=== PATIENT | female | born 1990 | race Caucasian/White ===

== ENCOUNTER 2022-07-01 14:59 | Emergency (ER) | payer OTHER ==
[2022-07-01 15:34] LABS: BASOPHILS # (AUTO) 0.1 10^3/uL (0.0-0.1); BASOPHILS % (AUTO) 1.1 %; EOSINOPHILS # (AUTO) 0.5 10^3/uL (0.0-0.7); EOSINOPHILS % (AUTO) 4.6 %; HCT - HEMATOCRIT 39.3 % (37.0-47.0); HGB - HEMOGLOBIN 12.5 g/dL (12.0-16.0); LYMPHOCYTES # (AUTO) 2.9 10^3/uL (1.5-3.5); LYMPHOCYTES % (AUTO) 29.7 %; MEAN CORPUSCULAR HEMOGLOBIN 29.6 pg (27.0-31.0); MEAN CORPUSCULAR HGB CONC 31.8 g/dL (32.0-36.0); MEAN CORPUSCULAR VOLUME 92.9 fL (81.0-99.0); MEAN PLATELET VOLUME 8.5 fL (7.9-10.8); MONOCYTES # (AUTO) 0.6 10^3/uL (0.0-1.0); MONOCYTES % (AUTO) 6.3 %; NEUTROPHILS # (AUTO) 5.7 10^3/uL (1.5-6.6); PLT - PLATELET COUNT 292 10^3/uL (130-450); RED BLOOD COUNT 4.23 10^6/uL (4.20-5.40); RED CELL DISTRIBUTION WIDTH 12.6 % (12.0-15.0); WHITE BLOOD COUNT 9.9 x10^3/uL (4.8-10.8)
[2022-07-01 15:41] LABS: BILIRUBIN,URINE NEGATIVE (NEGATIVE); GLUCOSE, URINE (UA) NEGATIVE (NEGATIVE); KETONES,URINE (UA) NEGATIVE (NEGATIVE); LEUKOCYTE ESTERASE, URINE NEGATIVE (NEGATIVE); NITRITE,URINE NEGATIVE (NEGATIVE); OCCULT BLOOD,URINE LARGE (NEGATIVE); PROTEIN,URINE NEGATIVE (NEGATIVE); UROBILINOGEN,URINE 0.2 (NORMAL) E.U./dL (NORMAL)
[2022-07-01 15:47] LABS: ALBUMIN 4.4 g/dL (3.2-5.5); ALBUMIN/GLOBULIN RATIO 1.3 (1.0-2.2); BILIRUBIN,TOTAL 0.6 mg/dL (0.2-1.0); CALCIUM 9.6 mg/dL (8.5-10.3); CREATININE 0.7 mg/dL (0.4-1.0); POTASSIUM 3.9 mmol/L (3.5-5.0); TOTAL PROTEIN 7.7 g/dL (6.7-8.2)
[2022-07-01 15:55] LABS: CLARITY,URINE HAZY (CLEAR)
[2022-07-01 15:56] LABS: AMORPHOUS SEDIMENT,UR Few /LPF; BACTERIA,URINE Rare /HPF (None Seen); RBC,URINE 0-5 /HPF (0-5); SQUAMOUS EPITHELIAL CELL,UR MOD Squamous (<= Few)
--- NOTE | 2022-07-01 16:42 | ED Physician Documentation ---
PD HPI ABD PAIN - Stated complaint Stated Complaint: BLEEDING - Chief complaint Chief Complaint: Abd Pain - History obtained from History obtained from: Patient (31-year-old primigravida at approximately 8 weeks presents with spotting over the weekend a little heavier today with mild cramping.) Review of Systems Constitutional: denies: Fever, Chills Cardiac: reports: Reviewed and negative Respiratory: reports: Reviewed and negative PD PAST MEDICAL HISTORY - Present Medications Home Medications: Ambulatory Orders Medication Instructions Recorded Confirmed Pnv No.95/Ferrous Fum/Folic AC 1 each PO DAILY 07/01/22 07/01/22 [ Tablet] - Allergies Allergies/Adverse Reactions: Allergies Allergy/AdvReac Type Severity Reaction Status Date / Time No Known Drug Allergies Allergy Verified 07/01/22 15:03 PD ED PE NORMAL - Vitals Vital signs reviewed: Yes - General General: Alert and oriented X 3, No acute distress - Abdomen Abdomen: Normal bowel sounds, Soft, Non tender, Other (I am unable to identify an intrauterine on ultrasound, that said there is material in the uterus. No tenderness.) - Neuro Neuro: Alert and oriented X 3, Normal speech - Psych Psych: Normal mood, Normal affect Results - Vitals Vitals: Vital Signs - 24 hr 07/01/22 07/01/22 15:05 17:50 Temperature 36.9 C Heart Rate 76 74 Respiratory 16 14 Rate Blood Pressure 132/75 H 120/74 O2 Saturation 99 99 Oxygen O2 Source Room air - Labs Labs: Laboratory Tests 07/01/22 07/01/22 07/01/22 15:26 15:26 15:26 WBC 9.9 RBC 4.23 Hgb 12.5 Hct 39.3 MCV 92.9 MCH 29.6 MCHC 31.8 L RDW 12.6 Plt Count 292 MPV 8.5 Neut # (Auto) 5.7 Lymph # (Auto) 2.9 [place] # (Auto) 0.6 Eos # (Auto) 0.5 Baso # (Auto) 0.1 Absolute Nucleated RBC 0.00 Nucleated RBC % 0.0 Sodium 135 Potassium 3.9 Chloride 100 L Carbon Dioxide 28 Anion Gap 7.0 BUN 12 Creatinine 0.7 Estimated GFR (MDRD) 99 Glucose 90 Calcium 9.6 Total Bilirubin 0.6 AST 18 ALT 30 Alkaline Phosphatase 82 Total Protein 7.7 Albumin 4.4 Globulin 3.3 Albumin/Globulin Ratio 1.3 Lipase 23 HCG, Quant Urine Color Urine Clarity Urine pH Ur Specific Evans Urine Protein Urine Glucose (UA) Urine Ketones Urine Occult Blood Urine Nitrite Urine Bilirubin Urine Urobilinogen Ur Leukocyte Esterase Urine RBC Urine WBC Ur Squamous Epith Cells Amorphous Sediment Urine Bacteria Ur Microscopic Review Urine Culture Comments Blood Type O POSITIVE Blood Type Recheck 07/01/22 07/01/22 07/01/22 15:26 15:26 16:58 WBC RBC Hgb Hct MCV MCH MCHC RDW Plt Count MPV Neut # (Auto) Lymph # (Auto) [place] # (Auto) Eos # (Auto) Baso # (Auto) Absolute Nucleated RBC Nucleated RBC % Sodium Potassium Chloride Carbon Dioxide Anion Gap BUN Creatinine Estimated GFR (MDRD) Glucose Calcium Total Bilirubin AST ALT Alkaline Phosphatase Total Protein Albumin Globulin Albumin/Globulin Ratio Lipase HCG, Quant 83708.00 Urine Color YELLOW Urine Clarity HAZY Urine pH 7.0 Ur Specific Evans 1.020 Urine Protein NEGATIVE Urine Glucose (UA) NEGATIVE Urine Ketones NEGATIVE Urine Occult Blood LARGE H Urine Nitrite NEGATIVE Urine Bilirubin NEGATIVE Urine Urobilinogen 0.2 (NORMAL) Ur Leukocyte Esterase NEGATIVE Urine RBC 0-5 Urine WBC 4-5 Ur Squamous Epith Cells MOD Squamous H Amorphous Sediment Few Urine Bacteria Rare Ur Microscopic Review INDICATED Urine Culture Comments NOT INDICATED Blood Type Blood Type Recheck O POSITIVE PD MEDICAL DECISION MAKING - ED course ED course: 31-year-old primigravida presents with failure to progress and intrauterine demise based on ultrasound. She would like to go ahead with misoprostal therapy to speed things up and I clarified appropriateness and dosing with Dr. Mckeon Departure - Departure Disposition: 01 Home, Self Care Clinical Impression: Miscarriage Condition: Good Instructions: ED Miscarriage Incom Comments: Call your doctor to arrange a follow-up appointment, make the next available appointment. In the interim, return anytime if worse or if new symptoms develop. Forms: Activity restrictions
[2022-07-01 17:51] VITALS: BP 120/74
[2022-07-01] MEDS ORDERED: miSOPROStoL 200 MCG TABLET BC STA (18:06)
[2022-07-01] MEDS ORDERED: oxyCODONE/ACET 5/325 Prepack 4 PO STA (18:06)
--- NOTE | 2022-07-01 18:18 | Ultrasound Report ---
PROCEDURE: OB First Trimester w/TV INDICATIONS: Threatened , vb 1st tri OUTSIDE/PRIOR DATING DATA: Last menstrual period (LMP): 04/28/2022. LMP-based estimated date of delivery (MARY): 02/02/2023. First dating scan (date and location): 07/01/2022. Estimated date of delivery (MARY) from first dating scan: 02/22/2023. The below data below was generated using the ultrasound MARY of 02/22/2023 TECHNIQUE: Real-time scanning was performed of the fetus and maternal pelvic organs, with image documentation. Endovaginal scanning was also performed to better visualize the fetus and maternal ovaries. COMPARISON: None FINDINGS: Embryo: . Gestational sac is seen, with a pole that measures 0.56 cm, which corresponds to an estimated gestational age of 6 weeks 2 days. No cardiac activity is seen. There is a subchorion ic bleed that measures 1 x 1.4 x 0.9 cm. Maternal organs: Ovaries are unremarkable, with a likely right ovarian corpus luteum. IMPRESSION: These imaging findings are worrisome for demise, with no cardiac activity within the feta l pole. There is a 20 day discrepancy between the estimated gestational age based upon these images and the e stimated patient age based upon the given date of last menstrual period. There is a moderately sized subchorionic hemorrhage seen. Close clinical follow-up with serial beta hCG measurements and serial ultrasound would be recommended , as clinically appropriate. Note: Concordant preliminary findings given by the high density talc coater operator upon the completion of the examination to Dr. Domingo Reviewed by: Philippe Reynolds MD on 07/01/2022 5:17 PM [facility] Approved by: Philippe Reynolds MD on 07/01/2022 5:17 PM [facility] Station ID: [id number]
== END 2022-07-01 18:30 | disposition home or self-care (01) ==
LOC: ED 14:59
DX: O03.9 Complete or unspecified spontaneous abortion without complication (principal); Z3A.08 8 weeks gestation of pregnancy
CPT/HCPCS: 36415; 76801; 76817; 80053; 81001; 83690; 84702; 85025; 86900; 86901; 99282; 99284; A9270; 81003; 87086

== ENCOUNTER 2024-01-27 15:08 | Emergency (ER) | payer OTHER ==
[2024-01-27] MEDS: ACETAMINOPHEN 500 MG TABLET PO STA (15:42)
--- NOTE | 2024-01-27 15:42 | ED Physician Documentation ---
PD HPI LOWER EXT INJURY - Stated complaint Stated Complaint: RT LEG INJ - Chief complaint Chief Complaint: Trauma Ext - History obtained from History obtained from: Patient - Additional information Additional information: Inversion injury of the right ankle today while playing volleyball. No other injuries. Pain is moderate. She is able to walk but barely. 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 : None HEENT: None Psych: Depression, Anxiety Musculoskeletal: None Derm: None - Past Surgical History Past Surgical History: Yes Ortho: Other - Present Medications Home Medications: Ambulatory Orders Medication Instructions Recorded Confirmed Pnv No.95/Ferrous Fum/Folic AC 1 each PO DAILY 07/01/22 07/01/22 [ Tablet] - Allergies Allergies/Adverse Reactions: Allergies Allergy/AdvReac Type Severity Reaction Status Date / Time No Known Drug Allergies Allergy Verified 01/27/24 15:12 - Social History Does the pt smoke?: No Smoking Status: Never smoker Does the pt drink ETOH?: No Does the pt have substance abuse?: No - Immunizations Immunizations are current?: Yes - POLST Patient has POLST: No PD ED PE NORMAL - Vitals Vital signs reviewed: Yes - General General: Alert and oriented X 3, No acute distress - Extremities Extremities: Other (Swollen and tender over the lateral malleolus of the right ankle. No proximal fibular tenderness. 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 Tylenol here. Departure - Departure Disposition: 01 Home, Self Care Clinical Impression: Right ankle sprain Condition: Good Record reviewed to determine appropriate education?: Yes Instructions: ED Sprain Ankle W X Ray Comments: Tylenol and/or ibuprofen as needed for pain. Ice elevate. Okay to walk on it when able. Follow-up with doctor in a week for recheck. Return for new or worsening symptoms. Forms: PCP List, Activity restrictions Discharge Date/Time: 01/27/24 16:06
--- NOTE | 2024-01-27 15:52 | XRAY Report ---
PROCEDURE: Ankle 3+V RT INDICATIONS: Trauma TECHNIQUE: 3 views of the ankle were acquired. COMPARISON: None. FINDINGS: Bones: No fractures or dislocations. Ankle mortise is normally aligned. No suspicious bony lesions . Soft tissues: Lateral malleolar edema. Achilles tendon appears normal. IMPRESSION: No visualized acute fracture or dislocation. However, occult injury cannot be excluded. Recommend rodney rt interval imaging follow-up in 7-10 days as clinically indicated for additional evaluation. Reviewed by: Hayley Bingham MD on 01/27/2024 3:51 PM PDT Approved by: Hayley Bingham MD on 01/27/2024 3:51 PM PDT Station ID: [id number]
[2024-01-27 16:14] VITALS: BP 126/74; O2SAT 100
== END 2024-01-27 16:06 | disposition home or self-care (01) ==
LOC: ED 15:08
DX: S93.401A Sprain of unspecified ligament of right ankle, initial encounter (principal); X50.1XXA Overexertion from prolonged static or awkward postures, initial encounter; Y93.68 Activity, volleyball (beach) (court); Y92.318 Other athletic court as the place of occurrence of the external cause
CPT/HCPCS: 73610; 99283; 99284; A9270